=== PATIENT | male | born 1955 | race Two or more races ===

== ENCOUNTER 2021-02-19 18:09 | Inpatient (IN) | payer MEDICARE, OTHER ==
[~2021-02-19] VITALS: Ht 165.1 cm; Wt 83.1 kg
[2021-02-19] MEDS ORDERED: dilTIAZem 25 MG/5 ML VIAL IV ONE ×3 (18:27→18:30)
[2021-02-19] MEDS ORDERED: ASPirin 81 mg TAB PO ONE (18:45)
[2021-02-19] MEDS ORDERED: SODIUM CHLORIDE 0.9% 1,000 ML IVB ONE ×2 (18:45→20:45)
[2021-02-19 19:02] LABS: Basophils # (auto) 0 10 ^3/uL (0-0.2); Basophils % (auto) 0.6 % (0.0-2.0); Eosinophils # (auto) 0.1 10 ^3/uL (0-0.8); Eosinophils % (auto) 0.7 % (0.0-7.0); Hematocrit 47.5 % (41.0-53.0); Hemoglobin 16.4 g/dL (13.5-17.5); Lymphocytes # (auto) 2.8 10 ^3/uL (0.4-5.4); Lymphocytes % (auto) 32.2 % (10.0-50.0); Mean Corpuscular Hemoglobin 33.8 pg (28.0-32.0); Mean Corpuscular Hgb Conc. 34.6 g/dL (32.0-36.0); Mean Corpuscular Volume 97.7 fL (80.0-100.0); Monocytes # (auto) 0.8 10 ^3/uL (0-1.3); Monocytes % (auto) 8.6 % (0.0-12.0); Neutrophils # (auto) 5.1 10 ^3/uL (1.6-8.6); Neutrophils % (auto) 57.9 % (37.0-80.0); Nucleated Red Blood Cells % 0.2 %; Red Blood Cells 4.86 10^6/uL (4.5-5.90); Red Cell Distribution Width 13.6 % (11.8-14.3); White Blood Cell 8.8 10^3/uL (4.4-10.8)
[2021-02-19 19:17] LABS: Albumin 4.3 g/dL (3.4-5.0); Anion Gap 9 (5-15); Blood Urea Nitrogen 24 mg/dL (7-18); Calcium 9.2 mg/dL (8.5-10.1); Carbon Dioxide 25 mmol/L (21-32); Chloride 110 mmol/L (98-107); Glucose 96 mg/dL (74-106); Magnesium 2.5 mg/dL (1.6-2.6); Potassium 3.3 mmol/L (3.5-5.1); Sodium 144 mmol/L (136-145)
[2021-02-19 19:23] LABS: Alanine Aminotransferase 41 U/L (16-61); Alkaline Phosphatase 105 U/L (45-117); Aspartate Aminotransferase 25 U/L (15-37); BUN/Creatinine Ratio 26.4; Bilirubin, Total 0.6 mg/dL (0.2-1.0); GFR African American 107 mL/min; GFR Non-African American 88 mL/min; Total Protein 8.4 g/dL (6.4-8.2)
[2021-02-19 19:35] LABS: INR 1.12 (0.9-1.15); Partial Thromboplastin Time 25.9 sec (23.0-31.2)
[2021-02-19] MEDS ORDERED: dilTIAZem 125mg/125ml BAG KIT 125 ML IV ONE (19:45)
[2021-02-19] MEDS ORDERED: ONDANSETRON HCL 4 MG/2 ML VIAL IV PRN (20:45)
[2021-02-19] MEDS ORDERED: NITROGLYCERIN 0.4 MG SL TAB SL PRN (20:45)
[2021-02-19] MEDS ORDERED: MORPHINE SULFATE INJECTION 2 MG/ML SYRG IV PRN (20:45)
[2021-02-19] MEDS ORDERED: TEMAZEPAM 15 MG CAP PO PRN (20:45)
[2021-02-19] MEDS ORDERED: ACETAMINOPHEN 325 MG TAB PO PRN (20:45)
[2021-02-19] MEDS ORDERED: ALBUMIN 5% 250 ML IV ONE (21:00)
[2021-02-19] MEDS: ENOXAPARIN SOD 40 MG/0.4 ML SYRINGE SC SCH (22:30)
[2021-02-19] MEDS: ATORVASTATIN 20 MG TAB PO SCH (22:30)
[2021-02-19 22:53] LABS: INR 1.12 (0.9-1.15); Partial Thromboplastin Time 26.4 sec (23.0-31.2)
[2021-02-19] MEDS ORDERED: POTASSIUM CHL 20 Meq TABLET PO ONE (23:15)
[2021-02-20] VITALS (11 sets, daily range): BP systolic 88–122; BP diastolic 43–80
[2021-02-20 07:59] LABS: Basophils # (auto) 0 10 ^3/uL (0-0.2); Basophils % (auto) 0.8 % (0.0-2.0); Eosinophils # (auto) 0.1 10 ^3/uL (0-0.8); Eosinophils % (auto) 1.8 % (0.0-7.0); Hematocrit 39.3 % (41.0-53.0); Hemoglobin 13.7 g/dL (13.5-17.5); Lymphocytes # (auto) 1.1 10 ^3/uL (0.4-5.4); Lymphocytes % (auto) 22.4 % (10.0-50.0); Mean Corpuscular Hgb Conc. 34.9 g/dL (32.0-36.0); Mean Corpuscular Volume 97.4 fL (80.0-100.0); Monocytes # (auto) 0.5 10 ^3/uL (0-1.3); Monocytes % (auto) 10.8 % (0.0-12.0); Neutrophils # (auto) 3.1 10 ^3/uL (1.6-8.6); Neutrophils % (auto) 64.2 % (37.0-80.0); Red Blood Cells 4.03 10^6/uL (4.5-5.90); Red Cell Distribution Width 13.3 % (11.8-14.3); White Blood Cell 4.9 10^3/uL (4.4-10.8)
[2021-02-20 08:25] LABS: BUN/Creatinine Ratio 23.8; Calcium 8.5 mg/dL (8.5-10.1); Potassium 3.9 mmol/L (3.5-5.1)
[2021-02-20] MEDS: ENOXAPARIN SOD 40 MG/0.4 ML SYRINGE SC SCH (09:42)
[2021-02-20] MEDS: PANTOPRAZOLE 40 MG TAB PO SCH (09:42)
[2021-02-20] MEDS ORDERED: ASPirin 81 mg TAB PO SCH (10:00)
[2021-02-20] MEDS ORDERED: PANT40T PO (11:49)
[2021-02-20] MEDS ORDERED: MELO1TAB73 PO (11:49)
[2021-02-20] MEDS ORDERED: TRAM50TA2 PO (12:17)
[2021-02-20] MEDS ORDERED: IBUP800T27 PO (12:17)
[2021-02-20] MEDS ORDERED: CHOL20007 PO (12:17)
[2021-02-20 14:38] LABS: Amphetamine Screen, Urine NEGATIVE (NEGATIVE); Barbiturate Scree,Urine NEGATIVE (NEGATIVE); Benzodiazephine Screen, Urine NEGATIVE (NEGATIVE); Cannabinoid Screen, Urine NEGATIVE (NEGATIVE); Cocaine Screen, Urine NEGATIVE (NEGATIVE); Opiate Scree,Urine NEGATIVE (NEGATIVE); Phencyclidine Screen, Urine NEGATIVE (NEGATIVE)
[2021-02-20] MEDS: ATORVASTATIN 20 MG TAB PO SCH (22:10)
[2021-02-21 05:00] VITALS: BP 119/67
[2021-02-21 06:51] LABS: Basophils # (auto) 0 10 ^3/uL (0-0.2); Eosinophils # (auto) 0.1 10 ^3/uL (0-0.8); Hemoglobin 15.1 g/dL (13.5-17.5); Monocytes # (auto) 0.6 10 ^3/uL (0-1.3)
[2021-02-21 06:55] LABS: Basophils % (auto) 0.5 % (0.0-2.0); Eosinophils % (auto) 1.4 % (0.0-7.0); Hematocrit 42.5 % (41.0-53.0); Lymphocytes # (auto) 1.6 10 ^3/uL (0.4-5.4); Lymphocytes % (auto) 29.8 % (10.0-50.0); Mean Corpuscular Hemoglobin 34.4 pg (28.0-32.0); Mean Corpuscular Hgb Conc. 35.5 g/dL (32.0-36.0); Monocytes % (auto) 11.5 % (0.0-12.0); Neutrophils % (auto) 56.8 % (37.0-80.0); Red Blood Cells 4.38 10^6/uL (4.5-5.90); Red Cell Distribution Width 13.4 % (11.8-14.3); White Blood Cell 5.2 10^3/uL (4.4-10.8)
[2021-02-21 07:34] LABS: Calcium 8.7 mg/dL (8.5-10.1); Magnesium 2.2 mg/dL (1.6-2.6); Potassium 3.6 mmol/L (3.5-5.1)
[2021-02-21 07:38] LABS: BUN/Creatinine Ratio 27.8
[2021-02-21] MEDS: PANTOPRAZOLE 40 MG TAB PO SCH (08:13)
[2021-02-21] MEDS: ENOXAPARIN SOD 40 MG/0.4 ML SYRINGE SC SCH (08:13)
[2021-02-21] MEDS ORDERED: ADENOSINE 70 MG in GIVE UN-DILUTED 0 ML IV STA (08:28)
[2021-02-21 09:00] VITALS: BP 142/81
[2021-02-21] MEDS ORDERED: ASPirin 81 mg TAB PO SCH (10:00)
[2021-02-21 12:34] VITALS: BP 144/86
[2021-02-21] MEDS ORDERED: MET25T PO (12:41)
[2021-02-21] MEDS ORDERED: ASPI-378 PO (12:41)
== END 2021-02-21 15:32 | disposition home or self-care (01) | DRG 308 ==
LOC: EDBD 18:09 → ER 18:15 → TELE 20:44 → ICU WEST 02-20 03:00 → WEST WING 02-20 11:57 → TELE-WESTW 02-20 12:14
PROVIDERS: ADMIT Nurse Practitioner; ATTEND Internal Medicine
PROC: 5A2204Z Restoration of Cardiac Rhythm, Single (ICD-10-PCS; principal; 2021-02-19)
DX: I48.91 Unspecified atrial fibrillation (principal); I50.33 Acute on chronic diastolic (congestive) heart failure; E87.6 Hypokalemia; K21.9 Gastro-esophageal reflux disease without esophagitis; E66.9 Obesity, unspecified; E78.5 Hyperlipidemia, unspecified; F12.90 Cannabis use, unspecified, uncomplicated; Z20.822 Contact with and (suspected) exposure to COVID-19; Z68.30 Body mass index [BMI] 30.0-30.9, adult; Z86.16 Personal history of COVID-19; Z87.01 Personal history of pneumonia (recurrent)
CPT/HCPCS: 36415; 70450; 71045; 78452; 80048; 80053; 80061; 80307; 83735; 83880; 84443; 84484; 85025; 85379; 85610; 85730; 87081; 87426; 93005; 93017; 93306; 96361; 96365; 96366; 96376; G0378; J0153

== ENCOUNTER 2024-12-30 02:47 | Emergency (ER) | payer MEDICARE, OTHER ==
[~2024-12-30] VITALS: Ht 175.3 cm; Wt 87.2 kg
[~2024-12-30 02:47] MED LIST: ASPI-378 PO; CHOL20007 PO; DOXY-286 PO; IBUP-1456 PO; MELO7.5T7 PO; PANT40T PO; TRAM50TA2 PO
--- NOTE | 2024-12-30 03:04 | ED.PDOC ---
Back pain HPI HPI Comments C/C of neck pain x3 days. Pt denies injury or sleeping incorrectly. VSS. NKDA. PATIENT CURRENTLY TAKES NORCO 5 MG P.O. FOR CHRONIC KNEE PAIN STATES HAS NOT HELPED WITH HIS NECK PAIN. Pt ambulates with steady gait. Denies numbness or weakness denies chest pain to with the breathing shortness for breath. Chief Complaint: Neck Pain Time Seen by MD: 03:00 [facility] Care Provider: [facility] Reviewed Notes: Nurses Notes, Medications, Allergies Allergies: Coded Allergies: NO KNOWN ALLERGIES (Unverified , 02/19/21) Home Meds Active Scripts Doxycycline Hyclate (DOXYCYCLINE HYCLATE) 100 Mg Tab, 1 TAB PO BID for 5 Days, #10 TAB Prov:MARGIE GUILLERMO MD 12/19/21 Aspirin (KISHAN ASPIRIN EC LOW DOSE) 81 Mg Tab, 1 TAB PO DAILY, #30 TAB Prov:MARGIE GUILLERMO MD 02/21/21 Reported Medications Cholecalciferol (VITAMIN D3) 2,000 Unit Tab, 1 TAB PO DAILY, #30 TAB 5 Refills 02/20/21 Tramadol Hcl (Tramadol Hcl) 50 Mg Tab, 50 MG PO TIDPRN, MG 02/20/21 Ibuprofen (Ibuprofen) 800 Mg Tab, 800 MG PO TIDPRN, MG 02/20/21 Meloxicam (Meloxicam) 7.5 Mg Tab, 1 TAB PO DAILYPRN 02/20/21 Pantoprazole Sodium Sesquihydr (Pantoprazole Sodium) 40 Mg Tab, 1 TAB PO DAILYPRN 02/20/21 Past Medical History PAST MEDICAL HISTORY: AFIB Surgical History: Denies all surgeries Family History Family History: Reviewed,noncontributory to illness Social History Smoker: Non-Smoker Alcohol: Denies ETOH Use Drugs: Denies Drug Use Lives In: Home Constitutional: denies: chills, diaphoresis, fatigue, fever, malaise, sweats, weakness, others EENTM: denies: blurred vision, double vision, ear bleeding, ear discharge, ear drainage, ear pain, ear ringing, eye pain, eye redness, hearing loss, mouth pain, mouth swelling, nasal discharge, nose bleeding, nose congestion, nose pain, photophobia, tearing, throat pain, throat swelling, voice changes, others Respiratory: denies: cough, hemoptysis, orthopnea, SOB at rest, shortness of breath, SOB with excertion, stridor, wheezing, others Cardiovascular: denies: chest pain, dizzy spells, diaphoresis, Dyspnea on exertion, edema, irregular heart beat, left arm pain, lightheadedness, palpitations, PND, syncope, others Gastrointestinal: denies: abdomen distended, abdominal pain, blood streaked bowels, constipated, diarrhea, dysphagia, difficulty swallowing, hematemesis, melena, nausea, poor appetite, poor fluid intake, rectal bleeding, rectal pain, vomiting, others Genitourinary: denies: burning, dysuria, flank pain, frequency, hematuria, incontinence, penile discharge, penile sore, pain, testicle pain, testicle swelling, urgency, others Neurological: denies: dizziness, fainting, headache, left sided numbness, left sided weakness, numbness, paresthesia, pre-existing deficit, right sided numbness, right sided weakness, seizure, speech problems, tingling, tremors, weakness, others Musculoskeletal: reports: neck pain; denies: back pain, gout, joint pain, joint swelling, muscle pain, muscle stiffness, others Integumetry: denies: bruises, change in color, change in hair/nails, dryness, laceration, lesions, lumps, rash, wounds, others Allergic/Immunocompromised: denies: Difficulty Healing, Frequent Infections, Hives, Itching, others Hematologic/Lymphatic: denies: anemia, blood clots, easy bleeding, easy bruising, swollen glands, others Endocrine: denies: excessive hunger, excessive sweating, excessive thirst, excessive urination, flushing, intolerance to cold, intolerance to heat, unexplained weight gain, unexplained weight loss, others Psychiatric: denies: anxiety, bipolar disorder, depression, hopeless, panic disorder, schizophrenia, sleepless, suicidal, others Physical Exam General Appearance: No Apparent Distress, Normal HEENT: Pharynx Normal Neck: Limited Range of Motion, Tender Lateral Respiratory: Lungs Clear, No Respiratory Distress, Normal Breath Sounds Cardiovascular: No Edema, No JVD, No Murmur, No Gallop, Normal Peripheral Pulses, Regular Rate/Rhythm Breast Exam: Deferred Gastrointestinal: Non Tender, Soft Genitalia: Deferred Pelvic: Deferred Rectal: Deferred Extremities: Normal capillary refill, Normal inspection, Normal range of motion, Non-tender, No pedal edema Musculoskeletal : Apperance: Normal Neurologic: Alert, financial services counselor II-XII nml as Tested, No Motor Deficits, Normal Affect, Normal Mood, No Sensory Deficits Cerebellar Function: Normal Reflexes: Normal Skin: Dry, Normal Color, Warm Lymphatic: No Adenopathy Was a procedure done? Was a procedure done?: No Back Pain Differential Dx Differential Diagnosis: Fracture, Musculoskeletal Pain X-Ray, Labs, Meds, VS Vital Signs Date Time Temp Pulse Resp B/P (MAP) Pulse Ox O2 Delivery O2 Flow Rate FiO2 12/30/24 05:23 98.0 61 19 128/71 (90) 94 98.0 12/30/24 04:58 16 Room Air* 0 21 21 12/30/24 02:53 97.5 60 15 132/75 (94) 95 97.5 Current Medications Medications (Trade) Dose Ordered Sig/Kinjal Route Start Time Stop Time Status Last Admin Dexamethasone Sodium Phosphate (Decadron Injection) 10 mg ONCE ONCE IM 12/30/24 03:30 12/30/24 03:31 DC 12/30/24 05:04 Ketorolac Tromethamine (Toradol Injection) 15 mg ONCE ONCE IM 12/30/24 05:15 12/30/24 05:16 DC 12/30/24 05:21 X-Ray, Labs, Meds, VS Comment CERVICAL SPINE X-RAY SHOWS NO ACUTE FRACTURE SUBLUXATIONS OSSEOUS LESIONS DOES SHOW SHORTENING OF THE LORDOTIC CURVATURE PATIENT GIVEN TORADOL 50 MG IM AND DECADRON 10 MG IM REPORTS PENITENTIARY PAIN FUNCTION REQUEST AND DISCHARGED AT THIS TIME. SCRIPT TRIAL OF MUSCLE RELAXER AND MEDROL DOSEPAK. ADVISED TO REST, ALTERNATE BETWEEN ICE AND HEAT. PATIENT STATES HE HAS AN APPOINTMENT WITH HIS PRIMARY CARE THIS WEEK ADVICE TO FOLLOW UP CONSIDER FURTHER IMAGING CISTERNS MRI AND THIS PERSISTS VITALS THE TAKE MEDICATIONS PRESCRIBED SIDE EFFECTS DISCUSSED WAS NOT THE MIXED MUSCLE RELAXER WITH HIS TRAMADOL. ER RETURN PRECAUTIONS GIVEN PATIENT INDICATES UNDERSTANDING AGREES WITH DISCHARGE PLAN OF CARE Time of 1ST Reevaluation: 03:20 Reevaluation 1ST: Unchanged Time of 2ND Reevaluation: 05:47 Reevaluation 2ND: Improved Patient Education/Counseling: Diagnosis, Treatment, Prognosis, Need For Follow Up Family Education/Counseling: No Family Present Departure 1 Departure Time of Disposition: 05:44 Impression: Primary Impression: Neck muscle strain Qualified Codes: S16.1XXA - Strain of muscle, fascia and tendon at neck level, initial encounter Disposition: HOME / SELF CARE / HOMELESS Condition: Stable e-Prescriptions Methylprednisolone (Medrol Dosepak) 4 Mg Sagar 4 MG PO UD for 6 Days, #21 TAB UAD Prov: REE LÓPEZ 12/30/24 Methocarbamol (Methocarbamol) 500 Mg Tab 250 MG PO BID PRN for 5 Days, #5 TAB Prov: REE LÓPEZ 12/30/24 Discharged With: Self Critical Care Note Critical Care Time?: No Stability Stability form required: No REE LÓPEZ December 30, 2024 03:04
--- NOTE | 2024-12-30 04:09 | DVH ---
Examination: CERV2 CLINICAL INDICATION: Pain. COMPARISON: None. TECHNIQUE: Three views of the cervical spine were obtained. FINDINGS: There is normal alignment without fracture. Straightening of the cervical spine, likely due to paraspinal muscle spasm. Marginal degenerative osteophytes in mid cervical vertebral bodies. Mineralization is normal. Vertebral body heights are preserved. Disc spaces and posterior elements are normal. Radiodense dental prostheses noted limiting evaluation of the odontoid process. The visualized odontoid process is unremarkable. No erosive or destructive changes. Visualized paraspinal soft tissues are unremarkable. IMPRESSION: 1. No acute fracture or subluxation by plain radiography. 2. Straightening of the cervical spine, likely due to paraspinal muscle spasm. Advised further evaluation with MRI cervical spine without contrast if clinically indicated. Electronically Signed 12/30/2024 04:07 Mili Ribeiro
[2024-12-30 04:58] VITALS: RESP 16
[2024-12-30] MEDS: DexAMETHasone SOD PHOS 10MG/1ML VIAL INJ IM ONE (05:04)
[2024-12-30] MEDS: KETOROLAC TROMETH 30 MG/ML 1ML VIAL IM ONE (05:21)
[2024-12-30 05:23] VITALS: BP 128/71; PULSE 61; RESP 19; TEMP 98; O2SAT 94
[2024-12-30] MEDS ORDERED: METH4PAK PO (05:46)
[2024-12-30] MEDS ORDERED: METH-1181 PO (05:46)
== END 2024-12-30 05:58 | disposition home or self-care (01) ==
LOC: ER 02:47
DX: S16.1XXA Strain of muscle, fascia and tendon at neck level, initial encounter (principal); I48.91 Unspecified atrial fibrillation; X58.XXXA Exposure to other specified factors, initial encounter; Y93.89 Activity, other specified; Y92.89 Other specified places as the place of occurrence of the external cause; Y99.8 Other external cause status
CPT/HCPCS: 72040; 96372; 99283; J1100; J1885